=== PATIENT | male | born 1975 | race Caucasian/White ===

== ENCOUNTER 2024-07-17 19:12 | Emergency (ER) | payer BC, SELFPAY ==
[2024-07-17 19:15] VITALS: BMI 33.3
[2024-07-17 19:22] VITALS: BP 174/88; PULSE 81; RESP 18; TEMP 36.9; O2SAT 98
--- NOTE | 2024-07-17 19:35 | XR_ITS ---
Examination: Fingers, left hand second digit 3 views 3 views Technique: AP, oblique, lateral views left hand second digit 3 views. Exam date and time: July 17, 2024 1942 hours INDICATIONS: Laceration to second digit today with pain FINDINGS: 2 opaque foreign bodies overlying adjacent to the distal phalanx fourth digit 1 mm opaque foreign body in the soft tissue adjacent to the distal second metacarpal, palmar Deformity with fracture of the tuft of distal phalanx second digit No foreign body at this site IMPRESSION: Fracture deformity ungual tuft tip distal phalanx index finger
--- NOTE | 2024-07-17 19:36 | PD.EDRME ---
Rapid Medical Screening Exam RME Arrival date/time: 07/17/24 19:12 49-year-old male presents emergency department complaining of solid injury to left second digit that occurred today. Patient denies being up-to-date with tetanus vaccine. Chief Complaint: Wound/Laceration Time Seen by Provider: 07/17/24 19:21 Vital signs: Vital Signs Temperature 98.5 F 07/17/24 19:22 Pulse Rate 81 07/17/24 19:22 Respiratory Rate 18 07/17/24 19:22 Blood Pressure 174/88 H 07/17/24 19:22 Pulse Oximetry (%) 98 07/17/24 19:22 Oxygen Delivery Method Room Air 07/17/24 19:22 Vital signs reviewed by provider: Yes
[2024-07-17] MEDS: DIPHTH,PERTUSS(ACELL),TET VAC 0.5 ML VIAL IMi (21:12)
--- NOTE | 2024-07-17 21:40 | EDNOTE_ITS ---
ED Wound/Laceration-RME/HPI General Chief Complaint: Wound/Laceration Stated Complaint: LT FIRST FINGER LAC Time Seen by Provider: 07/17/24 19:21 Arrival date/time: 07/17/24 19:12 49 year old male present to emergency room with c/o of accidentally cutting finger with chainsaw. unsure of tetanus status. LOCATION: finger SEVERITY: Symptoms are described as being severe with limitations on activities of daily living QUALITY: Symptoms are described as being dull or achy CONTEXT: cut finger with chainsaw DURATION/TIMING: The symptoms started approximately immediately prior to arrival ago and have been constant this then. ASSOCIATED SYMPTOMS: The patient is unable to identify any other associated symptoms. MODIFYING FACTORS: The patient is unable to identify any alleviating or aggravating symptoms. PERTINENT ROS: no fevers, no headache, no neck or chest pain, no unexplained nausea or vomiting, no focal neurological deficits REVIEW OF SYSTEMS: See History of Present Illness - with the exception of those mentioned in the history of present illness, all other systems reviewed and reported as negative GENERAL: In general the patient is awake, interactive, in an emergency department gurney. HEAD/EYES/EARS/NOSE/THROAT: normo-cephalic, atraumatic, mucus membranes are moist, anicteric, palpebral conjunctiva is pink, trachea is midline. NEUROLOGICAL: cranio-facial features are symmetric, moves all four extremities equally without obvious limitations or weakness. EXTREMITY: Left index finger distal laceration with partial nail plate involvement. fdp/fds, rom/strenght intact, no tenderness to palpation over the long bones or large joints of the bilateral lower extremities, no joint swellin g, no joint erythema, no unilateral leg swelling and no peripheral edema. SKIN: warm, dry, well-perfused, no jaundice, no rash, no telangiectasias or petechia. PSYCH: calm, cooperative, no evidence of psychosis or agitation RME / HPI RME / HPI narrative: 07/17/24 19:12 49-year-old male presents emergency department complaining of solid injury to left second digit that occurred today. Patient denies being up-to-date with tetanus vaccine. Related Data Previous Rx's ?Medication ?Instructions ?Recorded cephalexin 500 mg capsule 500 mg PO QID 10 days #40 ca ps 07/17/24 Allergies Allergy/AdvReac Type Severity Reaction Status Date / Time No Known Allergies Allergy Verified 07/17/24 19:14 Course Course Course Narrative: Patient is admitted to the Emergency Department and evaluated. Patient appears well, is non-toxic and well hydrated. The wound is sutured. No signs of tendon or neurovascular involvement. Patient is given wound care and follow up instructions. Referral for ortho follow up rx: keflex 500mg qid for 10 days discussed about possible fb that is not seen even after irrigation and wound care. Quality Measures none Orders Category Date Time Status Set Up Suture Tray STAT Care 07/17/24 19:36 Active Wound Care [Wound Care] NOW Care 07/17/24 19:36 Active splint [Splint / Immobilizer] STAT Care 07/17/24 21:36 Active XR finger LT min 2V Stat Exams 07/17/24 19:35 Completed Lidocaine 1% 20 ml [Xylocaine 1% 20 ML] Med 07/17/24 19:35 Discontinued 20 ml INFL X1 ONE Tet,Diphth,Pertuss(Acell)-Tdap [Boostrix Vacc] Med 07/17/24 19:35 Discontinued 0.5 ml IMI .ONCE ONE ceFAZolin [Ancef] 1 gm Med 07/17/24 21:37 Discontinued Sterile Water 2.5 ml IM X1 Vital Signs Vital signs: Vital Signs Temperature 98.5 F 07/17/24 19:22 Pulse Rate 81 07/17/24 19:22 Respiratory Rate 18 07/17/24 19:22 Blood Pressure 174/88 H 07/17/24 19:22 Pulse Oximetry (%) 98 07/17/24 19:22 Oxygen Delivery Method Room Air 07/17/24 19:22 Procedures -ED Laceration Laceration 1: Site: hand Size (cm): 2 Description: linear, flap, irregular and contaminated Depth: simple, single layer Local Anesthetic: lidocaine 1% Amount of anesthesia used (mL): 5 Pre-repair: wound explored, irrigated extensively, deep structures intact and extensive debridement Skin layer closed with: nylon Size (cm): 5-0 Number of sutures: 3 Technique: simple, interrupted Wound / Laceration Patient data External records reviewed:: [facility] previous records Clinical information provided by:: patient Social determinants that could affect healthcare access:: none Patient has the following chronic illnesses:: none How is presenting disease/condition affected by chronic disease/condition?: no chronic disease Evaluation data The following diagnostics were reviewed and interpreted by me:: radiology exam(s) Lab and/or radiology exams considered but not ordered:: none Interpretation Summary: xray: IMPRESSION: Fracture deformity ungual tuft tip distal phalanx index finger Medications / Prescriptions Medications or Prescriptions considered but not ordered:: none Medication administrations:: Medication Administration History Discontinued Medications Cefazolin Sodium 1 gm/ Sterile (Water 2.5 ml) 0 gm IM X1 ONE Stop: 07/17/24 21:38 Diphtheria/Tetanus/Acell Pertussis (Diphth,Pertuss(Acell),Tet Vac 0.5 Ml Vial) 0.5 ml IMi .ONCE ONE Stop: 07/17/24 19:36 Last Admin: 07/17/24 21:12 Dose: 0.5 ml Documented By: RAUDEL Lidocaine HCl (Lidocaine Hcl 1% 20 Ml Vial) 20 ml INFL X1 ONE Stop: 07/17/24 19:36 as stated above Consultations Consultation(s) initiated? (list below): No Diagnosis Wound Differential Diagnosis: laceration, avulsion of skin and other (tuft fx ) Most likely diagnosis given after review of the tests above:: tuft fracture Admission Indicated Admission indicated?: not indicated Admission Request Was there a request for admission?: No Disposition Plan Disposition Plan: Discharge Discharge Attestation Discharge Attestation: The patient and all family members were given an opportunity to ask questions and understood the discharge instructions. Discharge instructions specifically effects, indications for sooner follow up or return to the emergency department, and the expected course of current diagnosis. Patient condition: Stable Discharge Plan Plan Patient Disposition: HOME (Self Care) Health Concerns: Follow up with ortho/PMD as directed Return to Ed if symptoms worsen Prescriptions/Referrals Prescriptions/Med Rec: New cephalexin 500 mg capsule 500 mg PO QID 10 Days Qty: 40 0RF Referrals: No Primary/Family,Physician [Primary Care Provider] - In 1 week Scotty Clarke MD [Physician] - In 1 week Problem List Clinical Impression: Closed fracture of tuft of distal phalanx of finger Patient/Caregiver Discharge Instructions Education Materials: Common Types of Fractures Print Language: French Stand Alone Forms: [employer] Award Info., Patient Portal Info Letter
[2024-07-17] MEDS: LIDOCAINE HCL 1% 20 ML VIAL INFL (21:44)
[2024-07-17] MEDS: ceFAZolin 1 GM, Sterile Water 2.5 ML IM (21:45)
== END 2024-07-17 21:56 | disposition home or self-care (01) ==
PROVIDERS: Emergency Provider Emergency Medicine
DX: S61.211A Laceration without foreign body of left index finger without damage to nail, initial encounter (principal); W29.3XXA Contact with powered garden and outdoor hand tools and machinery, initial encounter; Z23 Encounter for immunization
CPT/HCPCS: 12001; 73140; 90715; 96372; 99283; A4216; J0690; J3490

== ENCOUNTER → 2024-08-03 | Outpatient (CLI) | payer BC, SELFPAY ==
--- NOTE | 2024-08-03 16:20 | XR_ITS ---
Examination: Hand, left 3 views Technique: Hand AP, oblique, lateral 3 views Date and time of exam: August 03, 2024 1717 hrs. Indications: Injured the hand July 17, 2024 with persistent pain Findings: 3 mm 1 mm opaque foreign bodies in the soft tissue palmar to the distal phalanx fourth digit 1 mm opaque foreign body in the soft tissue palmar to the distal second metacarpal Nondisplaced fracture deformity ungual tuft tip distal phalanx index finger Impression: Stable nondisplaced fracture deformity ungual tuft tip distal phalanx index finger Positive for opaque foreign bodies as described above
== END | disposition home or self-care (01) ==
PROVIDERS: PCP Family Medicine; Referring Provider Nurse Practitioner Gerontology; Visit Provider Nurse Practitioner Gerontology
DX: S62.631A Displaced fracture of distal phalanx of left index finger, initial encounter for closed fracture (principal); X58.XXXA Exposure to other specified factors, initial encounter
CPT/HCPCS: 73130

== ENCOUNTER → 2024-08-28 | Outpatient (CLI) | payer BC, SELFPAY ==
[2024-08-28 16:52] LABS: Collection Type, Urine Clean Catch; Squamous Epithelial Cell,Urine 0 /hpf (0-5)
[2024-08-28 17:34] LABS: Basophils # (Auto) 0.1 Thou/mm3 (0.0-0.2); Basophils % (Auto) 1 % (0-2.5); Eosinophils # (Auto) 0.1 Thou/mm3 (0.0-0.5); Eosinophils % (Auto) 1 % (0-10); Hematocrit 43.6 % (41.0-53.0); Hemoglobin 15.7 g/dL (13.5-16.0); Immature Granulocytes % (Auto) 0 % (0-0); Immature Granulocytes Auto 0.01 Thou/mm3 (0.00-0.00); Lymphocytes # (Auto) 1.7 Thou/mm3 (1.0-4.8); Lymphocytes % (Auto) 24 % (10-50); Mean Corpuscular Volume 86 fL (80-100); Monocytes # (Auto) 0.4 Thou/mm3 (0.0-0.8); Monocytes % (Auto) 6 % (0-12); Neutrophils # (Auto) 4.8 Thou/mm3 (1.8-7.7); Neutrophils % (Auto) 67 % (37-80); Nucleated Red Blood Cell % 0 /100 WBC (0); Platelet Count 217 Thou/mm3 (140-440); RDW Standard Deviation 39.9 fL (35.1-43.9); Red Blood Count 5.07 Miln/mm3 (4.50-5.90); White Blood Count 7.1 Thou/mm3 (3.8-10.6)
[2024-08-28 17:43] LABS: Glucose Estimated Average 91 mg/dL (80-131); Hemoglobin A1C 4.8 % Hgb (4.8-6.0)
[2024-08-28 17:49] LABS: Vitamin D 25 Hydroxy Total 36.8 ng/mL (7.3-40.2)
[2024-08-28 17:50] LABS: Alanine Aminotransferase 38 U/L (10-49); Albumin, Serum 4.4 gm/dL (3.5-5.0); Albumin/Globulin Ratio 1.6 (1.2-2.2); Alkaline Phosphatase 47 U/L (46-116); Anion Gap 9 (7-16); Aspartate Amino Transferase 26 U/L (0-34); BUN/Creatinine Ratio 15 Ratio (12-20); Bilirubin,Total 1.4 mg/dL (0.3-1.2); Blood Urea Nitrogen 15 mg/dL (9-23); Calcium 9.3 mg/dL (8.3-10.6); Calcium (Corrected) 9.3 mg/dL (8.5-10.1); Carbon Dioxide 29.1 mMol/L (20.0-31.0); Cardiac Risk Estimate 2.7 RATIO (4.0-6.7); Chloride 103 mMol/L (98-107); Cholesterol 109 mg/dL (132-200); Globulin 2.7 gm/dL (2.3-3.5); Glucose 89 mg/dL (74-106); HDL Cholesterol 41 mg/dL (40-60); LDL Cholesterol,Calculated 57 mg/dL (0-130); Osmolality,Calculated 281 (275-295); Potassium 3.6 mMol/L (3.4-5.1); Sodium 141 mMol/L (136-145); Thyroid Stimulating Hormone 1.29 uIU/mL (0.55-4.78); Total Protein 7.1 gm/dL (5.7-8.2); Triglycerides 53 mg/dL (30-150); eGFR > 60 See Note
[2024-08-28 17:53] LABS: Bilirubin,Urine Negative (Negative); Blood,Urine Negative (Negative); Clarity,Urine Clear (Clear/Hazy); Color,Urine Yellow (Lt Yel-Yel); Culture Indicated,Urine Not Indicated; Glucose, Urine Negative (Negative); Ketones,Urine Negative (Negative); Leukocyte Esterase,Urine Negative (Negative); Nitrite,Urine Negative (Negative); PH,Urine 6.5 (5.0-7.0); Protein,Urine Trace (Neg - Trace); RBC,Urine 1 /hpf (0-3); Specific Gravity,Urine 1.028 (1.001-1.035); Urobilinogen,Urine Negative mg/dL (0.0-1.0); WBC,Urine 2 /hpf (0-5)
== END | disposition home or self-care (01) ==
LOC: COPL 16:22
PROVIDERS: PCP Registered Nurse; Referring Provider Registered Nurse; Visit Provider Registered Nurse
DX: Z00.00 Encounter for general adult medical examination without abnormal findings (principal)
CPT/HCPCS: 36415; 80053; 80061; 81001; 82306; 83036; 84443; 85025

== ENCOUNTER → 2025-03-22 | Outpatient (CLI) | payer BC, SELFPAY ==
[2025-03-22 11:33] LABS: Basophils # (Auto) 0.1 Thou/mm3 (0.0-0.2); Basophils % (Auto) 1 % (0-2.5); Eosinophils # (Auto) 0.2 Thou/mm3 (0.0-0.5); Eosinophils % (Auto) 2 % (0-10); Hematocrit 45.2 % (41.0-53.0); Hemoglobin 16.3 g/dL (13.5-16.0); Immature Granulocytes Auto 0.03 Thou/mm3 (0.00-0.00); Lymphocytes # (Auto) 1.6 Thou/mm3 (1.0-4.8); Lymphocytes % (Auto) 22 % (10-50); Mean Corpuscular HGB Conc 36.1 g/dl (31.0-37.0); Mean Corpuscular Hemoglobin 31.3 pg (25.0-35.0); Mean Corpuscular Volume 87 fL (80-100); Monocytes # (Auto) 0.5 Thou/mm3 (0.0-0.8); Monocytes % (Auto) 7 % (0-12); Neutrophils # (Auto) 5.0 Thou/mm3 (1.8-7.7); Neutrophils % (Auto) 68 % (37-80); Nucleated Red Blood Cell # 0.00 Thou/mm3 (0.00-0.00); Nucleated Red Blood Cell % 0 /100 WBC (0); Platelet Count 214 Thou/mm3 (140-440); RDW Standard Deviation 38.5 fL (35.1-43.9); Red Blood Count 5.20 Miln/mm3 (4.50-5.90); White Blood Count 7.4 Thou/mm3 (3.8-10.6)
[2025-03-22 11:43] LABS: INR 1.0 (0.9-1.3); Partial Thromboplastin Time 26.0 Seconds (22.0-36.0); Prothrombin Time 10.9 Seconds (9.0-12.2)
[2025-03-22 11:45] LABS: Alanine Aminotransferase 35 U/L (10-49); Albumin, Serum 4.6 gm/dL (3.5-5.0); Albumin/Globulin Ratio 1.8 (1.2-2.2); Alkaline Phosphatase 46 U/L (46-116); Anion Gap 10 (7-16); Aspartate Amino Transferase 25 U/L (0-34); BUN/Creatinine Ratio 13 Ratio (12-20); Bilirubin,Total 1.0 mg/dL (0.3-1.2); Blood Urea Nitrogen 13 mg/dL (9-23); Calcium 9.9 mg/dL (8.3-10.6); Calcium (Corrected) 9.9 mg/dL (8.5-10.1); Carbon Dioxide 28.8 mMol/L (20.0-31.0); Chloride 103 mMol/L (98-107); Creatinine (Component) 1.0 mg/dL (0.6-1.3); Globulin 2.5 gm/dL (2.3-3.5); Glucose 91 mg/dL (74-106); Osmolality,Calculated 283 (275-295); Potassium 4.0 mMol/L (3.4-5.1); Sodium 142 mMol/L (136-145); Total Protein 7.1 gm/dL (5.7-8.2); eGFR > 60 See Note
== END | disposition home or self-care (01) ==
LOC: COPL 10:33
PROVIDERS: PCP Family Medicine; Referring Provider Internal Medicine Gastroenterology; Visit Provider Internal Medicine Gastroenterology
DX: R10.9 Unspecified abdominal pain (principal)
CPT/HCPCS: 36415; 80053; 85025; 85610; 85730